=== PATIENT | male | born 1940 | race Caucasian/White ===

== ENCOUNTER 2016-07-05 13:40 | Outpatient (CLI) | payer MEDICARE, BC ==
[2016-07-05 15:48] LABS: ALT (SGPT) 16 U/L (0-55); AST (SGOT) 14 U/L (5-34); Albumin 3.8 g/dL (3.4-4.8); Alkaline Phosphatase 85 U/L (40-150); Anion Gap 13 mmol/L (10-20); BUN (Urea Nitrogen) 11 mg/dL (8.4-25.7); Bilirubin, Total 0.4 mg/dL (0.2-1.2); Calc. Creatinine Clearance 0 mL/min (70-130); Calcium 9.1 mg/dL (7.8-10.44); Carbon Dioxide 26 mmol/L (23-31); Chloride 102 mmol/L (98-107); Estimated GFR-MDRD Greater than 90; Globulin 3.1 g/dL (2.4-3.5); Glucose 136 mg/dL (83-110); Protein, Total 6.9 g/dL (5.8-8.1); Sodium 137 mmol/L (136-145)
[2016-07-05 15:51] LABS: Hemoglobin A1c 6.2 % (4.0-6.0)
--- NOTE | 2016-07-05 16:06 | RAD ---
LEFT HIP TWO VIEWS: History: Hip pain. FINDINGS: Moderate degenerative changes are seen at the hip. There is spurring from the femoral head and acet abulum. The femoral head contour is normally preserved. No fracture or acute abnormality. IMPRESSION: Moderate degenerative changes of left hip. POS: [facility]
== END 2016-07-05 13:41 | disposition home or self-care (01) ==
LOC: MERGE 13:40 → MADLABBHPM 13:40
PROVIDERS: ATTEND Family Medicine
DX: E11.9 Type 2 diabetes mellitus without complications (principal); M25.552 Pain in left hip
CPT/HCPCS: 36415; 80053; 83036

== ENCOUNTER 2016-10-04 07:27 | Outpatient (CLI) | payer MEDICARE, BC ==
[2016-10-04 08:25] LABS: Hemoglobin A1c 5.9 % (4.0-6.0)
[2016-10-04 08:29] LABS: ALT (SGPT) 16 U/L (0-55); AST (SGOT) 13 U/L (5-34); Albumin 3.9 g/dL (3.4-4.8); Alkaline Phosphatase 100 U/L (40-150); Anion Gap 16 mmol/L (10-20); BUN (Urea Nitrogen) 13 mg/dL (8.4-25.7); Bilirubin, Total 0.3 mg/dL (0.2-1.2); Calc. Creatinine Clearance 0 mL/min (70-130); Calcium 9.4 mg/dL (7.8-10.44); Carbon Dioxide 23 mmol/L (23-31); Chloride 102 mmol/L (98-107); Estimated GFR-MDRD Greater than 90; Globulin 3.4 g/dL (2.4-3.5); Glucose 114 mg/dL (83-110); Potassium 4.1 mmol/L (3.5-5.1); Protein, Total 7.3 g/dL (5.8-8.1); Sodium 137 mmol/L (136-145)
== END 2016-10-04 07:28 | disposition home or self-care (01) ==
LOC: MADLABBHPM 07:27
PROVIDERS: ATTEND Family Medicine
DX: E11.9 Type 2 diabetes mellitus without complications (principal)
CPT/HCPCS: 36415; 80053; 83036

== ENCOUNTER 2016-11-22 13:39 | Outpatient (CLI) | payer MEDICARE, BC ==
--- NOTE | 2016-11-22 16:20 | RAD ---
THREE VIEWS LEFT SHOULDER 11/22/16 HISTORY: Chronic left should pain for years. No history of recent injury. FINDINGS: Comparison is made with chest x-ray on 04/30/16. There is left glenohumeral osteoarthropathy with mild left acromioclavicular joint osteoarthritis. 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 No fracture or dislocation is seen involving the left shoulder. Vascular calcifications are seen in the thoracic aorta. IMPRESSION: 1. 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 2. Intra-articular loose bodies in subcoracoid recess left shoulder. POS: [facility]
== END 2016-11-22 13:40 | disposition home or self-care (01) ==
LOC: MADRAD 13:39
PROVIDERS: ATTEND Orthopaedic Surgery
DX: M25.512 Pain in left shoulder (principal); M19.012 Primary osteoarthritis, left shoulder

== ENCOUNTER 2017-03-06 12:10 | Outpatient (CLI) | payer MEDICARE, BC ==
--- NOTE | 2017-03-06 14:39 | RAD ---
RADIOGRAPH CHEST 2 VIEWS: Date: 03-06-17 Time: 12:06 P.M. HISTORY: 76-year-old male with cough. COMPARISON: 04-30-16 FINDINGS: Again noted is the blunting of the right lateral costophrenic angle and mild blunting of the right p osterior costophrenic angle. This has not changed in appearance, and could either represent a recurr ent or residual small right pleural effusion; or pleural thickening. There is no acute infiltrate or pulmonary edema. No cardiomegaly. Ectasia of the thoracic aorta. No pneumothorax. Left shoulder art hroplasty hardware is new since the previous study. There are overlying left shoulder skin yazan. There has been no other interval change. IMPRESSION: 1. Status post very recent left total glenohumeral joint arthroplasty. 2. Small right pleural effusion versus pleural thickening. 3. No acute cardiopulmonary findings. [place] POS: [facility]
== END 2017-03-06 12:11 | disposition home or self-care (01) ==
LOC: MADRAD 12:10
PROVIDERS: ATTEND Family Medicine
DX: R05 Cough (principal); Z96.612 Presence of left artificial shoulder joint
CPT/HCPCS: 71020

== ENCOUNTER 2017-03-14 13:40 | Outpatient (CLI) | payer MEDICARE, BC ==
--- NOTE | 2017-03-14 16:31 | RAD ---
TWO VIEWS OF THE LEFT SHOULDER 03/14/17 PROVIDED CLINICAL HISTORY: Status post shoulder replacement. FINDINGS: Comparison is made with the study dated 02/28/17. Postoperative changes of reverse left total shoulde r arthroplasty are redemonstrated. There is no evidence for hardware loosening or migration. No evid ence for fracture or other acute osseous abnormality. Cutaneous yazan overlie the shoulder. The vi sualized left lung field appears clear. IMPRESSION: As above. POS: [facility]
== END 2017-03-14 13:41 | disposition home or self-care (01) ==
LOC: MADRAD 13:40
PROVIDERS: ATTEND Orthopaedic Surgery
DX: M19.012 Primary osteoarthritis, left shoulder (principal); Z96.612 Presence of left artificial shoulder joint

== ENCOUNTER 2017-04-25 16:53 | Emergency (ER) | payer MEDICARE, BC ==
[2017-04-25 18:13] LABS: #Basophils 0.1 thou/uL (0.0-0.2); #Eosinphils 0.1 thou/uL (0.0-0.7); #Lymphocytes 2.2 thou/uL (1.20-3.40); #Monocytes 0.9 thou/uL (0.11-0.59); #Neutrophils 4.8 thou/uL (1.40-6.50); %Basophils 1.3 % (0.0-1.0); %Eosinophils 1.8 % (0.0-10.0); %Lymphocytes 26.7 % (21.0-51.0); %Monocytes 11.1 % (0.0-10.0); %Neutrophils 59.2 % (42.0-75.0); Hemoglobin 13.6 g/dL (14.0-18.0); Mean Corpuscular HGB CONC 32.6 g/dL (32.0-36.0); Mean Corpuscular Hemoglobin 28.6 pg (27.0-31.0); Mean Corpuscular Volume 87.7 fl (80.0-94.0); Mean Platelet Volume 6.7 fL (7.4-10.4); Platelet Count 383 thou/uL (130-400); RBC Distribution Width 14.3 % (11.5-14.5); Red Blood Cell (RBC) Count 4.75 mill/uL (4.70-6.10); White Blood Cell (WBC) Count 8.2 thou/uL (4.8-10.8)
[2017-04-25 18:23] LABS: ALT (SGPT) 24 U/L (8-55); AST (SGOT) 17 U/L (5-34); Albumin 3.8 g/dL (3.4-4.8); Alkaline Phosphatase 95 U/L (40-150); Anion Gap 14 mmol/L (10-20); BUN (Urea Nitrogen) 12 mg/dL (8.4-25.7); Bilirubin, Total Less than 0.3 mg/dL (0.2-1.2); Calc. Creatinine Clearance 0 mL/min (70-130); Calcium 9.3 mg/dL (7.8-10.44); Carbon Dioxide 26 mmol/L (23-31); Chloride 98 mmol/L (98-107); Estimated GFR-MDRD Greater than 90; Globulin 3.9 g/dL (2.4-3.5); Glucose 278 mg/dL (83-110); Potassium 4.3 mmol/L (3.5-5.1); Protein, Total 7.7 g/dL (5.8-8.1); Sodium 134 mmol/L (136-145)
--- NOTE | 2017-04-25 19:01 | RAD ---
LEFT SHOULDER THREE VIEWS 04/25/17 HISTORY: Left shoulder surgery. Pain and swelling. FINDINGS: Left shoulder reverse prosthesis is in place with good alignment. A 1.7 cm ossific fragment just infe rior to the humeral head component is of doubtful clinical significance. No perihardware lucency is v isible. There are degenerative changes of the acromioclavicular joint. IMPRESSION: Left shoulder prosthesis is in good radiographic position. POS: [facility]
== END 2017-04-25 19:45 | disposition short-term general hospital (02) ==
LOC: MADERS 16:53
DX: M25.412 Effusion, left shoulder (principal)
CPT/HCPCS: 36415; 80053; 83605; 85025; 85379

== ENCOUNTER 2017-05-22 11:53 | Emergency (ER) | payer MEDICARE, BC ==
[~2017-05-22 11:53] MED LIST: Iopamidol 370 76% 125 ML VIAL FS ONE
--- NOTE | 2017-05-22 12:54 | RAD ---
AP VIEW CHEST: INDICATIONS: History of dyspnea. COMPARISON: 03/06/2017 FINDINGS: The chronic blunting of the right costophrenic angle is similar. The interstitial prominence involvi ng the right lung base is suspicious for scarring and is similar appearing. The left lung is clear. Post surgical changes of the left shoulder replacement is similar appearing. No definite acute osseo us abnormality is noted. IMPRESSION: 1. Stable blunting of the right costophrenic angle, suspicious for changes of chronic effusion. 2. Increased interstitial prominence involving the right lung base may reflect scarring or atelectas is. 3. The left lung is clear. POS: [facility]
[2017-05-22] MEDS ORDERED: Furosemide 40 MG/4 ML VIAL ONE (13:26)
[2017-05-22 13:30] LABS: #Basophils 0.1 thou/uL (0.0-0.2); #Eosinphils 0.1 thou/uL (0.0-0.7); #Lymphocytes 1.8 thou/uL (1.20-3.40); #Monocytes 0.8 thou/uL (0.11-0.59); #Neutrophils 5.8 thou/uL (1.40-6.50); %Basophils 1.4 % (0.0-1.0); %Eosinophils 1.5 % (0.0-10.0); %Lymphocytes 20.9 % (21.0-51.0); %Monocytes 9.6 % (0.0-10.0); %Neutrophils 66.7 % (42.0-75.0); Hemoglobin 14.2 g/dL (14.0-18.0); Mean Corpuscular HGB CONC 31.9 g/dL (32.0-36.0); Mean Corpuscular Hemoglobin 27.8 pg (27.0-31.0); Mean Corpuscular Volume 87.2 fl (80.0-94.0); Mean Platelet Volume 7.5 fL (7.4-10.4); Platelet Count 281 thou/uL (130-400); Red Blood Cell (RBC) Count 5.11 mill/uL (4.70-6.10); White Blood Cell (WBC) Count 8.6 thou/uL (4.8-10.8)
[2017-05-22 13:45] LABS: CKMB 1.4 ng/mL (0-6.6); Troponin I Less than 0.010 ng/mL (< 0.028)
[2017-05-22 13:46] LABS: ALT (SGPT) 23 U/L (8-55); AST (SGOT) 16 U/L (5-34); Albumin 3.8 g/dL (3.4-4.8); Alkaline Phosphatase 104 U/L (40-150); Anion Gap 16 mmol/L (10-20); BUN (Urea Nitrogen) 12 mg/dL (8.4-25.7); Bilirubin, Total 0.5 mg/dL (0.2-1.2); Calc. Creatinine Clearance 0 mL/min (70-130); Calcium 9.2 mg/dL (7.8-10.44); Carbon Dioxide 25 mmol/L (23-31); Chloride 97 mmol/L (98-107); Estimated GFR-MDRD 90; Globulin 3.7 g/dL (2.4-3.5); Glucose 386 mg/dL (83-110); Potassium 4.3 mmol/L (3.5-5.1); Protein, Total 7.5 g/dL (5.8-8.1); Sodium 134 mmol/L (136-145)
[2017-05-22] MEDS ORDERED: Enoxaparin Sodium 80 MG/0.8 ML SYRINGE ONE (14:15)
[2017-05-22 14:37] LABS: Bilirubin Negative (Negative); Blood, Urine Negative (Negative); Clarity Clear (Clear); Glucose, Urine (Dipstick) 100 mg/dL (Negative); Leukocyte Negative (Negative); Nitrite Negative (Negative); Protein, Urine (Dipstick) Negative (Neg-Trace); Specific Gravity, Urine 1.015 (1.005-1.030); Urobilinogen 0.2 mg/dL (0.2-1.0)
--- NOTE | 2017-05-22 15:20 | CT ---
CTA OF THE CHEST WITH CONTRAST: Comparison: None. History: Elevated D-Dimer and dyspnea. Technique: Multiple contiguous axial images were obtained in a CTA of the chest with contrast per pul monary embolism protocol. 3D oblique MIP reformats and direct coronal reformats were performed. FINDINGS: There are multiple filling defects in the bilateral pulmonary arteries, right greater than left. Ther e is no shift of the interventricular septum to suggest right heart dysfunction. The heart is normal in size. No hilar or mediastinal lymphadenopathy are seen. There is a small right pleural effusion with adjacent atelectasis. No focal masses are seen in the latricia ngs. No pneumothorax is present. The visualized subdiaphragmatic structures are unremarkable. The chest wall soft tissues are unremark able. IMPRESSION: 1. Multiple bilateral pulmonary emboli. 2. Small right pleural effusion with adjacent atelectasis. 3. Dr. Molina notified of the findings at 2:55 p.m. on 05-22-17. POS: [facility]
== END 2017-05-22 15:34 | disposition short-term general hospital (02) ==
LOC: MADERS 11:53
DX: I26.99 Other pulmonary embolism without acute cor pulmonale (principal); E11.65 Type 2 diabetes mellitus with hyperglycemia; R10.9 Unspecified abdominal pain
CPT/HCPCS: 36415; 71020; 71275; 80053; 81003; 82553; 83880; 84484; 85025; 85379; 87040; 87086; 93005; 94760; 96372; 96374; J1650; J1940; J7620

== ENCOUNTER 2017-06-08 18:47 | Outpatient (CLI) | payer MEDICARE, BC | END 2017-06-08 18:48 | disposition home or self-care (01) | LOC: MADLAB 18:47 | PROVIDERS: ATTEND Orthopaedic Surgery | DX: M25.552 Pain in left hip (principal); I26.99 Other pulmonary embolism without acute cor pulmonale; Z79.01 Long term (current) use of anticoagulants | CPT/HCPCS: 36415; 85652; 86140 ==

== ENCOUNTER 2017-06-11 19:41 | Outpatient (CLI) | payer MEDICARE, BC ==
[2017-06-11 19:53] LABS: INR-International Normal Ratio 2.8; PTT 40.7 SEC (22.9-36.1); Prothrombin Time 30.3 SEC (12.0-14.7)
== END 2017-06-11 19:42 | disposition home or self-care (01) ==
LOC: MADLAB 19:41
PROVIDERS: ATTEND Family Medicine
DX: Z51.81 Encounter for therapeutic drug level monitoring (principal); I26.99 Other pulmonary embolism without acute cor pulmonale; E11.9 Type 2 diabetes mellitus without complications; Z79.01 Long term (current) use of anticoagulants
CPT/HCPCS: 36415; 85610; 85730

== ENCOUNTER 2017-06-15 15:51 | Outpatient (CLI) | payer MEDICARE, BC ==
[2017-06-15 16:23] LABS: INR-International Normal Ratio 2.2; PTT 35.9 SEC (22.9-36.1)
== END 2017-06-15 15:52 | disposition home or self-care (01) ==
LOC: MADLAB 15:51
PROVIDERS: ATTEND Family Medicine
DX: Z51.81 Encounter for therapeutic drug level monitoring (principal); I26.99 Other pulmonary embolism without acute cor pulmonale; Z79.01 Long term (current) use of anticoagulants
CPT/HCPCS: 36415; 85610; 85730

== ENCOUNTER 2017-07-04 17:01 | Outpatient (CLI) | payer MEDICARE, BC ==
[2017-07-04 18:34] LABS: Bilirubin Negative (Negative); Blood, Urine Negative (Negative); Clarity Slightly Cloudy (Clear); Glucose, Urine (Dipstick) Negative (Negative); Leukocyte Negative (Negative); Nitrite Positive (Negative); Protein, Urine (Dipstick) Trace mg/dL (Neg-Trace); Urobilinogen 0.2 mg/dL (0.2-1.0); pH, Urine 7.5 (5.0-9.0)
[2017-07-04 18:35] LABS: Anion Gap 18 mmol/L (10-20); BUN (Urea Nitrogen) 10 mg/dL (8.4-25.7); Calc. Creatinine Clearance 0 mL/min (70-130); Carbon Dioxide 23 mmol/L (23-31); Chloride 102 mmol/L (98-107); Estimated GFR-MDRD Greater than 90; Glucose 72 mg/dL (83-110); Potassium 4.2 mmol/L (3.5-5.1); Sodium 139 mmol/L (136-145)
[2017-07-04 19:09] LABS: RBC/HPF 0-3 HPF (0-3); WBC/HPF 0-3 HPF (0-3)
[2017-07-04 19:10] LABS: Bacteria/HPF 3+ HPF (None Seen); Crystals/HPF 1+ TRIPLE PHOS HPF (Negative)
[2017-07-04 21:01] LABS: Hemoglobin A1c 7.7 % (4.0-6.0)
== END 2017-07-04 17:02 | disposition home or self-care (01) ==
LOC: MADLAB 17:01
PROVIDERS: ATTEND Urology
DX: N39.41 Urge incontinence (principal); N40.1 Benign prostatic hyperplasia with lower urinary tract symptoms; R35.1 Nocturia; Z87.442 Personal history of urinary calculi
CPT/HCPCS: 36415; 80048; 81001; 83036; 87086

== ENCOUNTER 2017-08-15 13:32 | Outpatient (CLI) | payer MEDICARE, BC ==
[2017-08-15 14:18] LABS: INR-International Normal Ratio 1.9; PTT 37.7 SEC (22.9-36.1); Prothrombin Time 22.8 SEC (12.0-14.7)
== END 2017-08-15 13:33 | disposition home or self-care (01) ==
LOC: MADLABBHPM 13:32
PROVIDERS: ATTEND Orthopaedic Surgery
DX: I26.99 Other pulmonary embolism without acute cor pulmonale (principal); M25.552 Pain in left hip
CPT/HCPCS: 36415; 85610; 85652; 85730; 86140

== ENCOUNTER 2017-10-07 12:46 | Outpatient (CLI) | payer MEDICARE, BC ==
[2017-06-04 18:06] LABS: #Basophils 0.2 thou/uL (0.0-0.2); #Eosinphils 0.2 thou/uL (0.0-0.7); #Lymphocytes 2.5 thou/uL (1.20-3.40); #Monocytes 0.9 thou/uL (0.11-0.59); #Neutrophils 4.3 thou/uL (1.40-6.50); %Basophils 2.1 % (0.0-1.0); %Eosinophils 2.5 % (0.0-10.0); %Monocytes 11.6 % (0.0-10.0); %Neutrophils 52.7 % (42.0-75.0); Hemoglobin 13.7 g/dL (14.0-18.0); Mean Corpuscular HGB CONC 31.9 g/dL (32.0-36.0); Mean Corpuscular Hemoglobin 28.2 pg (27.0-31.0); Mean Corpuscular Volume 88.5 fl (80.0-94.0); Mean Platelet Volume 6.9 fL (7.4-10.4); Platelet Count 427 thou/uL (130-400); RBC Distribution Width 14.9 % (11.5-14.5); Red Blood Cell (RBC) Count 4.87 mill/uL (4.70-6.10); White Blood Cell (WBC) Count 8.1 thou/uL (4.8-10.8)
[2017-06-04 18:11] LABS: INR-International Normal Ratio 2.1; PTT 39.4 SEC (22.9-36.1); Prothrombin Time 24.6 SEC (12.0-14.7)
[2017-06-04 18:20] LABS: Anion Gap 21 mmol/L (10-20); BUN (Urea Nitrogen) 11 mg/dL (8.4-25.7); Calc. Creatinine Clearance 0 mL/min (70-130); Calcium 9.6 mg/dL (7.8-10.44); Carbon Dioxide 17 mmol/L (23-31); Chloride 103 mmol/L (98-107); Estimated GFR-MDRD Greater than 90; Glucose 84 mg/dL (83-110); Potassium 4.3 mmol/L (3.5-5.1); Sodium 137 mmol/L (136-145)
[2017-06-04 20:07] LABS: Hemoglobin A1c 9.2 % (4.0-6.0)
[2017-10-07 13:46] LABS: INR-International Normal Ratio 1.3; Prothrombin Time 16.7 SEC (12.0-14.7)
== END 2017-10-07 12:47 | disposition home or self-care (01) ==
LOC: MADLABBHPM 12:46
PROVIDERS: ATTEND Family Medicine
DX: Z51.81 Encounter for therapeutic drug level monitoring (principal); I26.99 Other pulmonary embolism without acute cor pulmonale; E11.9 Type 2 diabetes mellitus without complications; Z79.01 Long term (current) use of anticoagulants
CPT/HCPCS: 36415; 80048; 83036; 85025; 85610; 85730

== ENCOUNTER 2017-10-10 17:26 | Outpatient (CLI) | payer MEDICARE, BC ==
[2017-10-10 17:54] LABS: INR-International Normal Ratio 1.1; Prothrombin Time 14.3 SEC (12.0-14.7)
[2017-10-10 18:04] LABS: ALT (SGPT) 22 U/L (8-55); AST (SGOT) 16 U/L (5-34); Albumin 3.9 g/dL (3.4-4.8); Alkaline Phosphatase 75 U/L (40-150); Anion Gap 16 mmol/L (10-20); BUN (Urea Nitrogen) 13 mg/dL (8.4-25.7); Bilirubin, Total 0.3 mg/dL (0.2-1.2); Calc. Creatinine Clearance 0 mL/min (70-130); Calcium 9.5 mg/dL (7.8-10.44); Carbon Dioxide 22 mmol/L (23-31); Chloride 104 mmol/L (98-107); Estimated GFR-MDRD Greater than 90; Globulin 3.6 g/dL (2.4-3.5); Glucose 118 mg/dL (83-110); Potassium 4.2 mmol/L (3.5-5.1); Protein, Total 7.5 g/dL (5.8-8.1); Sodium 138 mmol/L (136-145)
[2017-10-10 18:08] LABS: #Basophils 0.1 thou/uL (0.0-0.2); #Eosinphils 0.2 thou/uL (0.0-0.7); #Lymphocytes 1.9 thou/uL (1.20-3.40); #Monocytes 0.8 thou/uL (0.11-0.59); #Neutrophils 3.8 thou/uL (1.40-6.50); %Basophils 1.3 % (0.0-1.0); %Lymphocytes 28.4 % (21.0-51.0); %Neutrophils 55.3 % (42.0-75.0); Hemoglobin 13.3 g/dL (14.0-18.0); Mean Corpuscular HGB CONC 32.1 g/dL (32.0-36.0); Mean Corpuscular Hemoglobin 27.1 pg (27.0-31.0); Mean Corpuscular Volume 84.4 fl (80.0-94.0); Mean Platelet Volume 6.7 fL (7.4-10.4); Platelet Count 317 thou/uL (130-400); RBC Distribution Width 14.1 % (11.5-14.5); Red Blood Cell (RBC) Count 4.91 mill/uL (4.70-6.10); White Blood Cell (WBC) Count 6.8 thou/uL (4.8-10.8)
== END 2017-10-10 17:27 | disposition home or self-care (01) ==
LOC: MADLABBHPM 17:26
PROVIDERS: ATTEND Family Medicine
DX: Z51.81 Encounter for therapeutic drug level monitoring (principal); I26.99 Other pulmonary embolism without acute cor pulmonale; E11.9 Type 2 diabetes mellitus without complications; Z79.01 Long term (current) use of anticoagulants
CPT/HCPCS: 36415; 80053; 83036; 85025; 85610

== ENCOUNTER 2017-10-14 19:28 | Outpatient (CLI) | payer MEDICARE, BC ==
[2017-10-14 19:53] LABS: INR-International Normal Ratio 1.4; Prothrombin Time 17.1 SEC (12.0-14.7)
== END 2017-10-14 19:29 | disposition home or self-care (01) ==
LOC: MADLAB 19:28
PROVIDERS: ATTEND Family Medicine
DX: Z51.81 Encounter for therapeutic drug level monitoring (principal); I26.99 Other pulmonary embolism without acute cor pulmonale; Z79.01 Long term (current) use of anticoagulants
CPT/HCPCS: 36415; 85610

== ENCOUNTER 2017-10-18 19:18 | Outpatient (CLI) | payer MEDICARE, BC ==
[2017-10-18 19:54] LABS: INR-International Normal Ratio 2.2; PTT 36.5 SEC (22.9-36.1); Prothrombin Time 25.6 SEC (12.0-14.7)
== END 2017-10-18 19:19 | disposition home or self-care (01) ==
LOC: MADLAB 19:18
PROVIDERS: ATTEND Family Medicine
DX: Z51.81 Encounter for therapeutic drug level monitoring (principal); I26.99 Other pulmonary embolism without acute cor pulmonale; Z79.01 Long term (current) use of anticoagulants
CPT/HCPCS: 36415; 85610; 85730

== ENCOUNTER 2017-10-31 14:42 | Outpatient (CLI) | payer MEDICARE, BC ==
[2017-10-31 15:49] LABS: INR-International Normal Ratio 3.5; PTT 44.5 SEC (22.9-36.1); Prothrombin Time 36.4 SEC (12.0-14.7)
== END 2017-10-31 14:43 | disposition home or self-care (01) ==
LOC: MADLABBHPM 14:42
PROVIDERS: ATTEND Family Medicine
DX: Z51.81 Encounter for therapeutic drug level monitoring (principal); I26.99 Other pulmonary embolism without acute cor pulmonale; Z79.01 Long term (current) use of anticoagulants
CPT/HCPCS: 36415; 85610; 85730

== ENCOUNTER 2017-11-05 13:18 | Outpatient (CLI) | payer MEDICARE, BC ==
[2017-11-05 14:07] LABS: INR-International Normal Ratio 3.5; PTT 49.4 SEC (22.9-36.1); Prothrombin Time 36.8 SEC (12.0-14.7)
== END 2017-11-05 13:19 | disposition home or self-care (01) ==
LOC: MADLAB 13:18
PROVIDERS: ATTEND Family Medicine
DX: Z51.81 Encounter for therapeutic drug level monitoring (principal); I26.99 Other pulmonary embolism without acute cor pulmonale; Z79.01 Long term (current) use of anticoagulants
CPT/HCPCS: 36415; 85610; 85730

== ENCOUNTER 2017-11-12 08:24 | Outpatient (CLI) | payer MEDICARE, BC ==
[2017-11-12 09:14] LABS: INR-International Normal Ratio 1.9; PTT 34.3 SEC (22.9-36.1); Prothrombin Time 21.9 SEC (12.0-14.7)
== END 2017-11-12 08:25 | disposition home or self-care (01) ==
LOC: MADLABBHPM 08:24
PROVIDERS: ATTEND Family Medicine
DX: Z51.81 Encounter for therapeutic drug level monitoring (principal); I26.99 Other pulmonary embolism without acute cor pulmonale; Z79.01 Long term (current) use of anticoagulants
CPT/HCPCS: 36415; 85610; 85730

== ENCOUNTER 2017-11-16 18:16 | Outpatient (CLI) | payer MEDICARE, BC ==
[2017-11-16 18:55] LABS: Anion Gap 17 mmol/L (10-20); BUN (Urea Nitrogen) 12 mg/dL (8.4-25.7); Calc. Creatinine Clearance 0 mL/min (70-130); Calcium 9.2 mg/dL (7.8-10.44); Carbon Dioxide 23 mmol/L (23-31); Chloride 103 mmol/L (98-107); Estimated GFR-MDRD 85; Glucose 179 mg/dL (83-110); Potassium 4.3 mmol/L (3.5-5.1); Sodium 139 mmol/L (136-145)
== END 2017-11-16 18:17 | disposition home or self-care (01) ==
LOC: MADLAB 18:16
PROVIDERS: ATTEND Urology
DX: N28.1 Cyst of kidney, acquired (principal); N39.41 Urge incontinence; R81 Glycosuria; I26.99 Other pulmonary embolism without acute cor pulmonale; Z79.01 Long term (current) use of anticoagulants
CPT/HCPCS: 36415; 80048

== ENCOUNTER 2017-11-18 15:21 | Outpatient (CLI) | payer MEDICARE, BC ==
[2017-11-18 15:41] LABS: INR-International Normal Ratio 1.4
== END 2017-11-18 15:22 | disposition home or self-care (01) ==
LOC: MADLABBHPM 15:21
PROVIDERS: ATTEND Family Medicine
DX: I26.99 Other pulmonary embolism without acute cor pulmonale (principal)
CPT/HCPCS: 36415; 85610; 85730

== ENCOUNTER 2017-11-25 12:45 | Outpatient (CLI) | payer MEDICARE, BC ==
[2017-11-25 13:40] LABS: INR-International Normal Ratio 1.9; PTT 36.5 SEC (22.9-36.1); Prothrombin Time 22.7 SEC (12.0-14.7)
== END 2017-11-25 12:46 | disposition home or self-care (01) ==
LOC: MADLABBHPM 12:45
PROVIDERS: ATTEND Family Medicine
DX: Z51.81 Encounter for therapeutic drug level monitoring (principal); Z79.1 Long term (current) use of non-steroidal anti-inflammatories (NSAID); Z79.01 Long term (current) use of anticoagulants
CPT/HCPCS: 36415; 85610; 85730

== ENCOUNTER 2017-12-10 13:28 | Outpatient (CLI) | payer MEDICARE, BC ==
[2017-12-10 14:27] LABS: INR-International Normal Ratio 3.6
== END 2017-12-10 13:29 | disposition home or self-care (01) ==
LOC: MADLABBHPM 13:28
PROVIDERS: ATTEND Family Medicine
DX: Z51.81 Encounter for therapeutic drug level monitoring (principal); R79.1 Abnormal coagulation profile; Z79.01 Long term (current) use of anticoagulants
CPT/HCPCS: 36415; 85610

== ENCOUNTER 2017-12-12 10:38 | Outpatient (CLI) | payer MEDICARE, BC ==
[2017-12-12 11:06] LABS: INR-International Normal Ratio 2.1; Prothrombin Time 23.6 SEC (12.0-14.7)
== END 2017-12-12 10:39 | disposition home or self-care (01) ==
LOC: MADLABBHPM 10:38
PROVIDERS: ATTEND Family Medicine
DX: Z51.81 Encounter for therapeutic drug level monitoring (principal); R79.1 Abnormal coagulation profile; Z79.01 Long term (current) use of anticoagulants
CPT/HCPCS: 36415; 85610

== ENCOUNTER 2017-12-16 09:57 | Outpatient (CLI) | payer MEDICARE, BC ==
[2017-12-16 10:29] LABS: INR-International Normal Ratio 1.5; Prothrombin Time 17.9 SEC (12.0-14.7)
== END 2017-12-16 09:58 | disposition home or self-care (01) ==
LOC: MADLABBHPM 09:57
PROVIDERS: ATTEND Family Medicine
DX: R79.1 Abnormal coagulation profile (principal)
CPT/HCPCS: 36415; 85610

== ENCOUNTER 2017-12-19 12:24 | Outpatient (CLI) | payer MEDICARE, BC ==
--- NOTE | 2017-12-19 15:34 | CT ---
CTA PULMONARY ANGIOGRAM: HISTORY: Followup for pulmonary emboli. Patient with a previous history of pulmonary emboli. Evaluate for in terval resolution. FINDINGS: Contrast-enhanced CTA chest performed. Two-D and 3D reconstructed images performed on an independent 3D work station. CTA chest demonstrates a small right-sided pleural effusion. No evidence of pulmonary parenchymal le ronit seen. Previously noted right and left pulmonary emboli have resolved. No evidence of pulmonary emboli seen at this time. No evidence of mediastinal, axillary, or hilar lymphadenopathy seen. IMPRESSION: Solved pulmonary emboli. No residual pulmonary emboli seen. POS: [facility]
[2017-12-21 22:04] LABS: Calc. Creatinine Clearance 0 mL/min (70-130); Estimated GFR-MDRD Greater than 90
== END 2017-12-19 12:25 | disposition home or self-care (01) ==
LOC: MADCT 12:24
PROVIDERS: ATTEND Internal Medicine Pulmonary Disease
DX: I26.99 Other pulmonary embolism without acute cor pulmonale (principal)
CPT/HCPCS: 36415; 71275; 82565

== ENCOUNTER 2017-12-23 11:53 | Outpatient (CLI) | payer MEDICARE, BC ==
[2017-12-23 13:00] LABS: INR-International Normal Ratio 1.3
== END 2017-12-23 11:54 | disposition home or self-care (01) ==
LOC: MADLABBHPM 11:53
PROVIDERS: ATTEND Family Medicine
DX: Z51.81 Encounter for therapeutic drug level monitoring (principal); R79.1 Abnormal coagulation profile; Z79.01 Long term (current) use of anticoagulants
CPT/HCPCS: 36415; 85610

== ENCOUNTER 2017-12-31 17:06 | Outpatient (CLI) | payer MEDICARE, BC ==
[2017-12-31 18:14] LABS: INR-International Normal Ratio 1.6; Prothrombin Time 18.9 SEC (12.0-14.7)
== END 2017-12-31 17:07 | disposition home or self-care (01) ==
LOC: MADLAB 17:06
PROVIDERS: ATTEND Family Medicine
DX: Z51.81 Encounter for therapeutic drug level monitoring (principal); Z79.01 Long term (current) use of anticoagulants
CPT/HCPCS: 85610; 36415-59

== ENCOUNTER 2018-04-15 10:10 | Outpatient (CLI) | payer MEDICARE, BC ==
[2018-04-15 10:41] LABS: INR-International Normal Ratio 1.1; Prothrombin Time 14.7 SEC (12.0-14.7)
== END 2018-04-15 10:11 | disposition home or self-care (01) ==
LOC: MADLABBHPM 10:10
PROVIDERS: ATTEND Family Medicine
DX: R79.1 Abnormal coagulation profile (principal)
CPT/HCPCS: 36415; 85610

== ENCOUNTER 2018-05-12 08:51 | Outpatient (CLI) | payer MEDICARE, BC ==
[2018-05-12 10:08] LABS: ALT (SGPT) 22 U/L (8-55); AST (SGOT) 17 U/L (5-34); Albumin 4.1 g/dL (3.4-4.8); Alkaline Phosphatase 73 U/L (40-150); Anion Gap 14 mmol/L (10-20); BUN (Urea Nitrogen) 10 mg/dL (8.4-25.7); Bilirubin, Total 0.4 mg/dL (0.2-1.2); Calc. Creatinine Clearance 0 mL/min (70-130); Calcium 9.5 mg/dL (7.8-10.44); Carbon Dioxide 23 mmol/L (23-31); Chloride 105 mmol/L (98-107); Cholesterol 196 mg/dl (< 200 Desired); Estimated GFR-MDRD Greater than 90; Globulin 3.6 g/dL (2.4-3.5); Glucose 112 mg/dL (83-110); HDL Cholesterol 39 mg/dL (>60 Neg Risk); LDL Cholesterol, Calculated 121 mg/dL; Potassium 4.1 mmol/L (3.5-5.1); Protein, Total 7.7 g/dL (5.8-8.1); Sodium 138 mmol/L (136-145); Triglycerides 181 mg/dL (Less than 150)
[2018-05-12 10:17] LABS: #Basophils 0.1 thou/uL (0.0-0.2); #Eosinphils 0.2 thou/uL (0.0-0.7); #Lymphocytes 1.9 thou/uL (1.20-3.40); #Monocytes 0.7 thou/uL (0.11-0.59); #Neutrophils 4.3 thou/uL (1.40-6.50); %Basophils 1.1 % (0.0-1.0); %Lymphocytes 26.3 % (21.0-51.0); %Neutrophils 59.6 % (42.0-75.0); Hemoglobin 14.5 g/dL (14.0-18.0); Mean Corpuscular HGB CONC 31.8 g/dL (32.0-36.0); Mean Corpuscular Hemoglobin 28.4 pg (27.0-31.0); Mean Corpuscular Volume 89.4 fL (78.0-98.0); Mean Platelet Volume 7.2 fL (7.4-10.4); Platelet Count 328 thou/uL (130-400); RBC Distribution Width 13.2 % (11.5-14.5); Red Blood Cell (RBC) Count 5.11 mill/uL (4.70-6.10); White Blood Cell (WBC) Count 7.1 thou/uL (4.8-10.8)
[2018-05-12 10:27] LABS: Thyroid Stimulating Hormone 2.9834 uIU/mL (0.35-4.94)
--- NOTE | 2018-05-12 11:28 | CT ---
NONCONTRAST CT PELVIS: Date: 05-12-18 History: Right hip pain for one year. Comparison: CT pelvis 05-24-17, as well as CT pelvis on 02-13-16. FINDINGS: Again noted is moderate osteoarthritis involving the right hip. No fracture or dislocation is seen. L eft total hip prosthesis is noted. Degenerative changes are again seen involving the visualized lower lumbar spine as well as each sacro iliac joint, similar to prior studies. There is evidence of colonic diverticulosis. Post-surgical changes are again noted related to prior h ernia repair. There is a small fat containing inguinal ring on the right, also seen on prior exams. There is no fluid collection seen in the subcutaneous soft tissues. Vascular calcifications are seen. IMPRESSION: 1. No pelvic fracture is visualized. 2. Moderate right hip osteoarthritis. 3. Left total hip prosthesis. 4. Prominent degenerative changes in the visualized lower lumbar spine. 5. Colonic diverticulosis. POS: [facility]
[2018-05-12 17:26] LABS: Hemoglobin A1c 6.5 % (4.0-6.0)
[2018-05-12 18:08] LABS: Ferritin 259.52 ng/mL (22-322)
[2018-05-12 18:11] LABS: Iron 66 ug/dL (65-175)
[2018-05-12 19:01] LABS: Creatinine, Urine 110.07 mg/dL (63-166); Microalbumin/Creat Ratio 9.1 mg/g (Less than 30)
== END 2018-05-12 08:52 | disposition home or self-care (01) ==
LOC: MADLABBHPM 08:51
PROVIDERS: ATTEND Family Medicine
DX: M25.551 Pain in right hip (principal); R10.31 Right lower quadrant pain; E11.9 Type 2 diabetes mellitus without complications; D64.9 Anemia, unspecified; M16.11 Unilateral primary osteoarthritis, right hip; M47.816 Spondylosis without myelopathy or radiculopathy, lumbar region; K57.30 Diverticulosis of large intestine without perforation or abscess without bleeding; Z96.642 Presence of left artificial hip joint
CPT/HCPCS: 36415; 72192; 80053; 80061; 82043; 82728; 83036; 83540; 84443; 85025

== ENCOUNTER 2018-07-31 15:43 | Outpatient (CLI) | payer MEDICARE, BC ==
--- NOTE | 2018-07-31 16:17 | RAD ---
CHEST TWO VIEWS 07/31/18 HISTORY: Cough x3 weeks. COMPARISON: 05/22/17. FINDINGS: Slight elongation of the aorta. Normal cardiac silhouette. Pulmonary vessels and hilum are normal. C hronic changes in the right lung base. No pneumothorax or osseous abnormalities. IMPRESSION: Chronic changes in the right lung base. POS: [facility]
== END 2018-07-31 15:44 | disposition home or self-care (01) ==
LOC: MADRAD 15:43
PROVIDERS: ATTEND Family Medicine
DX: R05 Cough (principal)
CPT/HCPCS: 71046

== ENCOUNTER 2021-12-09 09:44 | Outpatient (CLI) | payer MEDICARE, BC ==
[2021-12-09 13:37] LABS: ALT (SGPT) 53 U/L (8-55); AST (SGOT) 43 U/L (5-34); Alkaline Phosphatase 57 U/L (40-110); Anion Gap 14 mmol/L (10-20); BUN (Urea Nitrogen) 11 mg/dL (8.4-25.7); Bilirubin, Total 0.7 mg/dL (0.2-1.2); Calc. Creatinine Clearance 0 mL/min (70-130); Calcium 9.2 mg/dL (7.8-10.44); Carbon Dioxide 26 mmol/L (23-31); Cardiac Risk 3.5 (Less than 4.5); Chloride 103 mmol/L (98-107); Cholesterol 158 mg/dl (< 200 Desired); Estimated GFR 90; Globulin 3.1 g/dL (2.4-3.5); Glucose 211 mg/dL (83-110); HDL Cholesterol 45 mg/dL (>60 Neg Risk); LDL Cholesterol, Calculated 77 mg/dL; Potassium 4.7 mmol/L (3.5-5.1); Protein, Total 7.1 g/dL (5.8-8.1); Sodium 138 mmol/L (136-145); Triglycerides 182 mg/dL (Less than 150)
[2021-12-10 12:19] LABS: Hemoglobin A1c 8.5 % (4.0-6.0)
== END 2021-12-09 09:45 | disposition home or self-care (01) ==
LOC: MADLAB 09:44
PROVIDERS: ATTEND Family Medicine
DX: E78.2 Mixed hyperlipidemia (principal); E11.9 Type 2 diabetes mellitus without complications
CPT/HCPCS: 36415; 80053; 80061; 83036

== ENCOUNTER 2022-01-27 07:57 | Emergency (ER) | payer MEDICARE, BC ==
[~2022-01-27 07:57] MED LIST changes: -Iopamidol 370 76% 125 ML VIAL FS ONE; +Sodium Chloride 0.9% 1,000 ML BAG ONE
[2022-01-27] MEDS ORDERED: Ondansetron PF 4 MG/2 ML Vial ONE (08:25)
[2022-01-27] MEDS ORDERED: Ketorolac Tromethamine 30 MG/ML VIAL ONE (08:25)
[2022-01-27] MEDS ORDERED: Sodium Chloride 0.9% 1,000 ML ONE (08:25)
[2022-01-27 08:30] LABS: Bilirubin Negative (Negative); Blood, Urine Trace (Negative); Glucose, Urine (Dipstick) >=1000 mg/dL (Negative); Ketone, Urine 15 mg/dL (Negative); Leukocyte Negative (Negative); Nitrite Negative (Negative); Protein, Urine (Dipstick) Negative (Neg-Trace); Urobilinogen 0.2 mg/dL (Less than 2); pH, Urine 5.5 (5.0-9.0)
[2022-01-27] MEDS ORDERED: Iopamidol 370 76% 100 ML VIAL ONE (08:33)
[2022-01-27 08:36] LABS: Clarity Hazy (Clear)
[2022-01-27 08:37] LABS: RBC/HPF 0-3 HPF (0-3)
[2022-01-27 08:38] LABS: Bacteria/HPF 1+ HPF (None Seen); Squamous Epithelial 0-3 HPF (0-3); WBC/HPF 21-50 HPF (0-3)
[2022-01-27 09:01] LABS: Band 15 % (5-11); Hemoglobin 14.2 g/dL (14.0-18.0); Lymphocytes 3 % (21-51); MDiff Complete? YES; Mean Corpuscular HGB CONC 32.6 g/dL (32.0-36.0); Mean Corpuscular Hemoglobin 30.7 pg (27.0-31.0); Mean Corpuscular Volume 94.2 fL (78.0-98.0); Monocytes 10 % (0-10); Neutrophil 71 % (42-75); Platelet Count 203 thou/uL (130-400); Platelet Morphology Comment Appears Adequate; RBC Distribution Width 12.2 % (11.5-14.5); RBC Morphology Normal; Reactive Lymphocytes 1 % (0-10); Red Blood Cell (RBC) Count 4.62 mill/uL (4.70-6.10); White Blood Cell (WBC) Count 23.9 thou/uL (4.8-10.8)
[2022-01-27 09:03] LABS: ALT (SGPT) 45 U/L (8-55); AST (SGOT) 26 U/L (5-34); Albumin 3.9 g/dL (3.4-4.8); Alkaline Phosphatase 59 U/L (40-110); Anion Gap 15 mmol/L (10-20); BUN (Urea Nitrogen) 13 mg/dL (8.4-25.7); Bilirubin, Total 1.1 mg/dL (0.2-1.2); Calc. Creatinine Clearance 0 mL/min (70-130); Calcium 9.5 mg/dL (7.8-10.44); Carbon Dioxide 25 mmol/L (23-31); Chloride 97 mmol/L (98-107); Estimated GFR 78; Glucose 402 mg/dL (83-110); Potassium 4.3 mmol/L (3.5-5.1); Protein, Total 6.9 g/dL (5.8-8.1); Sodium 133 mmol/L (136-145)
[2022-01-27] MEDS ORDERED: Sodium Chloride 0.9% 100 ML ONE (10:53)
[2022-01-27] MEDS ORDERED: cefTRIAXone\\ROCEPHIN 1 GM VIAL ONE (10:53)
== END 2022-01-27 12:33 | disposition home or self-care (01) ==
LOC: MADERS 07:57
DX: N39.0 Urinary tract infection, site not specified (principal); E78.00 Pure hypercholesterolemia, unspecified; Z79.899 Other long term (current) drug therapy
CPT/HCPCS: 36415; 74177; 80053; 81003; 81015; 83605; 85025; 87040; 96361; 96365; 96375; J0696; J1885; J2405; J3490; J7050; Q9967

== ENCOUNTER 2022-02-01 10:54 | Outpatient (CLI) | payer MEDICARE, BC | END 2022-02-01 10:55 | disposition home or self-care (01) | LOC: MADRAD 10:54 | PROVIDERS: ATTEND Family Medicine | DX: J91.8 Pleural effusion in other conditions classified elsewhere (principal); J98.4 Other disorders of lung | CPT/HCPCS: 71046 ==

== ENCOUNTER 2022-02-06 14:37 | Outpatient (CLI) | payer MEDICARE, BC ==
[2022-02-06 14:50] LABS: Anion Gap 18 mmol/L (10-20); BUN (Urea Nitrogen) 16 mg/dL (8.4-25.7); Calc. Creatinine Clearance 0 mL/min (70-130); Carbon Dioxide 26 mmol/L (23-31); Chloride 94 mmol/L (98-107); Estimated GFR 73; Glucose 518 mg/dL (83-110); Potassium 5.2 mmol/L (3.5-5.1); Sodium 133 mmol/L (136-145)
== END 2022-02-06 14:38 | disposition home or self-care (01) ==
LOC: MADLABBHPM 14:37 → MADLAB 14:38
PROVIDERS: ATTEND Family Medicine
DX: E87.5 Hyperkalemia (principal)
CPT/HCPCS: 80048

== ENCOUNTER 2023-11-10 03:18 | Emergency (ER) | payer MEDICARE, BC ==
[2023-11-10 03:54] LABS: #Basophils 0.2 thou/uL (0.0-0.2); #Eosinphils 0.1 thou/uL (0.0-0.7); #Lymphocytes 3.4 thou/uL (1.20-3.40); #Monocytes 1.3 thou/uL (0.11-0.59); #Neutrophils 6.4 thou/uL (1.40-6.50); %Basophils 1.6 % (0.0-1.0); %Lymphocytes 29.9 % (21.0-51.0); %Monocytes 11.4 % (0.0-10.0); %Neutrophils 56.1 % (42.0-75.0); Hematocrit 37.3 % (42.0-52.0); Hemoglobin 11.6 g/dL (14.0-18.0); Mean Corpuscular HGB CONC 31.1 g/dL (32.0-36.0); Mean Corpuscular Hemoglobin 29.5 pg (27.0-31.0); Mean Corpuscular Volume 94.9 fl (78.0-98.0); Mean Platelet Volume 5.8 fL (7.4-10.4); Platelet Count 289 10x3/uL (130-400); RBC Distribution Width 14.8 % (11.5-14.5); Red Blood Cell (RBC) Count 3.93 mill/uL (4.70-6.10); White Blood Cell (WBC) Count 11.5 10x3/uL (4.8-10.8)
[2023-11-10 04:12] LABS: ALT (SGPT) 28 U/L (8-55); AST (SGOT) 22 U/L (5-34); Alkaline Phosphatase 100 U/L (40-110); Anion Gap 13 mmol/L (10-20); BUN (Urea Nitrogen) 13 mg/dL (8.4-25.7); Bilirubin, Total 0.6 mg/dL (0.2-1.2); Calc. Creatinine Clearance 0 mL/min (70-130); Carbon Dioxide 27 mmol/L (23-31); Chloride 99 mmol/L (98-107); Estimated GFR 99; Globulin 3.1 g/dL (2.4-3.5); Glucose 195 mg/dL (83-110); Lipase 38 U/L (8-78); Potassium 4.2 mmol/L (3.5-5.1); Protein, Total 6.1 g/dL (5.8-8.1); Sodium 135 mmol/L (136-145)
[2023-11-10 04:13] LABS: Troponin I Less than 0.010 ng/mL (< 0.028)
[2023-11-10 04:17] LABS: Bilirubin Negative (Negative); Blood, Urine Trace (Negative); Clarity Turbid (Clear); Glucose, Urine (Dipstick) >=1000 mg/dL (Negative); Ketone, Urine Negative (Negative); Leukocyte Trace (Negative); Nitrite Positive (Negative); Protein, Urine (Dipstick) Negative (Neg-Trace)
[2023-11-10 04:18] LABS: Bacteria/HPF 3+ HPF (None Seen); CAUTI Indications for Culture Spinal Cord Injury; Squamous Epithelial 0-3 HPF (0-3); Urine Culture Reflex Yes Yes; WBC/HPF Greater than 50 HPF (0-3)
[2023-11-10 07:22] LABS: Lactic Acid 1.6 mmol/L (0.5-2.2)
[2023-11-10 08:31] LABS: Bilirubin Negative (Negative); Blood, Urine Trace (Negative); Glucose, Urine (Dipstick) >=1000 mg/dL (Negative); Ketone, Urine Negative (Negative); Leukocyte Negative (Negative); Nitrite Negative (Negative); Protein, Urine (Dipstick) Negative (Neg-Trace)
[2023-11-10 08:32] LABS: Clarity Hazy (Clear)
[2023-11-10 08:36] LABS: Troponin I Less than 0.010 ng/mL (< 0.028)
[2023-11-10 08:38] LABS: Bacteria/HPF Rare-Few HPF (None Seen); CAUTI Indications for Culture Pelvic or flank pain; RBC/HPF 0-3 HPF (0-3); Squamous Epithelial 0-3 HPF (0-3); WBC/HPF Greater Than 50 HPF (0-3)
[2023-11-10] MEDS ORDERED: Sodium Chloride 0.9% 100 ML ONE (08:47)
[2023-11-10] MEDS ORDERED: Acetaminophen 500 MG TAB ONE (08:47)
[2023-11-10] MEDS ORDERED: cefTRIAXone (ROCEPHIN) 2 GM VIAL ONE (08:47)
[2023-11-10] MEDS ORDERED: Iopamidol 370 76% 100 ML VIAL ONE (09:00)
== END 2023-11-10 11:01 ==
LOC: MADERS 03:18
DX: K59.00 Constipation, unspecified (principal); L89.309 Pressure ulcer of unspecified buttock, unspecified stage; N39.0 Urinary tract infection, site not specified
CPT/HCPCS: 36415; 74177; 80053; 81001; 83605; 83690; 84484; 85025; 85379; 87070; 87077; 87086; 87186; 87205; 96365; J0696; J3490; Q9967

== ENCOUNTER 2023-12-05 07:55 | Emergency (ER) | payer MEDICARE, BC ==
[2023-12-05 08:34] LABS: #Basophils 0.1 thou/uL (0.0-0.2); #Eosinphils 0.1 thou/uL (0.0-0.7); #Lymphocytes 2.3 thou/uL (1.20-3.40); #Monocytes 1.2 thou/uL (0.11-0.59); #Neutrophils 11.4 thou/uL (1.40-6.50); %Basophils 0.7 % (0.0-1.0); %Eosinophils 0.8 % (0.0-10.0); %Lymphocytes 15.3 % (21.0-51.0); %Monocytes 7.8 % (0.0-10.0); %Neutrophils 75.4 % (42.0-75.0); Hematocrit 38.7 % (42.0-52.0); Hemoglobin 11.6 g/dL (14.0-18.0); Mean Corpuscular HGB CONC 29.9 g/dL (32.0-36.0); Mean Corpuscular Hemoglobin 27.3 pg (27.0-31.0); Mean Corpuscular Volume 91.4 fl (78.0-98.0); Mean Platelet Volume 6.5 fL (7.4-10.4); Platelet Count 253 10x3/uL (130-400); RBC Distribution Width 14.9 % (11.5-14.5); Red Blood Cell (RBC) Count 4.24 mill/uL (4.70-6.10); White Blood Cell (WBC) Count 15.1 10x3/uL (4.8-10.8)
[2023-12-05 08:47] LABS: ALT (SGPT) 13 U/L (8-55); AST (SGOT) 13 U/L (5-34); Albumin 2.9 g/dL (3.4-4.8); Alkaline Phosphatase 71 U/L (40-110); Anion Gap 18 mmol/L (10-20); BUN (Urea Nitrogen) 10 mg/dL (8.4-25.7); Bilirubin, Total 0.6 mg/dL (0.2-1.2); Calc. Creatinine Clearance 0 mL/min (70-130); Calcium 8.7 mg/dL (7.8-10.44); Carbon Dioxide 20 mmol/L (23-31); Chloride 102 mmol/L (98-107); Estimated GFR 104; Glucose 150 mg/dL (83-110); Magnesium 1.8 mg/dL (1.6-2.6); Potassium 3.7 mmol/L (3.5-5.1); Protein, Total 5.9 g/dL (5.8-8.1); Sodium 136 mmol/L (136-145)
== END 2023-12-05 10:21 | disposition home or self-care (01) ==
LOC: MADERS 07:55
DX: R00.8 Other abnormalities of heart beat (principal); N39.0 Urinary tract infection, site not specified; I48.91 Unspecified atrial fibrillation; I10 Essential (primary) hypertension; E78.00 Pure hypercholesterolemia, unspecified; E11.9 Type 2 diabetes mellitus without complications; Z79.899 Other long term (current) drug therapy
CPT/HCPCS: 80053; 83605; 83735; 84443; 85025; 87040; 87077; 87149; 87186; 94760